=== PATIENT | male | born 1980 | race Two or more races ===

== ENCOUNTER 2018-05-10 18:37 | Inpatient (IN) | payer BC, OTHER ==
[~2018-05-10] VITALS: Ht 180.3 cm; Wt 90.7 kg
--- NOTE | 2018-05-10 19:02 | NUR ---
PT TO ER BED 3. BIBWIFE C/O BACK PAIN WITH BLOOD IN URINE X 2 DAYS. PT STATES HIT HIS SIDE AT WORK X 1 WEEK AGO. PT PLACED IN GOWN AND ON DIRECTOR OF CULTURE. VSS/RESP EVEN UNLABORED/NAD NOTED/SKIN WARM AND DRY/AFEBRILE/DENIES N-V-D/AOX4. AWAITNG MD SHARMA.
--- NOTE | 2018-05-10 19:05 | NUR ---
URINE SPECIMEN OBTAINED AND SENT TO THE LAB.
--- NOTE | 2018-05-10 19:10 | NUR ---
18G IV TO R AC X 1 ATTEMPT USING ASEPTIC TECH, BLOOD HANDED OVER TO THE LAB AT BEDSIDE. IV FLUSHES EASILY WITH NS, NO S/S INFILTRATION NOTED AT THIS TIME.
[2018-05-10] MEDS ORDERED: KETOROLAC TROMETHAMINE 15 MG/ML VIAL ONE (19:11)
[2018-05-10] MEDS ORDERED: ACETAMINOPHEN ES 500 MG TABLET ONE (19:12)
[2018-05-10] MEDS ORDERED: MORPHINE SULFATE INJ 4 MG/ML DISP.SYRIN ONE (19:12)
[2018-05-10] MEDS ORDERED: ONDANSETRON HCL/PF 4 MG/2 ML VIAL ONE (19:12)
[2018-05-10 19:20] LABS: BASOPHILS % (AUTO) 0.5 % (0.0-2.0); EOSINOPHILS % (AUTO) 0.9 % (0.0-6.0); HEMATOCRIT 49 % (39-51); HEMOGLOBIN 16.8 g/dL (13.5-17.5); LYMPHOCYTES # (AUTO) 1.4 /CMM (0.8-4.8); LYMPHOCYTES % (AUTO) 15.4 % (20.0-44.0); MEAN CORPUSCULAR HEMOGLOBIN 31 PG (26.0-33.0); MEAN CORPUSCULAR HGB CONC 34 g/dl (31.0-36.0); MEAN CORPUSCULAR VOLUME 90 fL (80-96); MONOCYTES # (AUTO) 0.4 /CMM (0.1-1.30); MONOCYTES % (AUTO) 4.1 % (2.0-12.0); NEUTROPHILS # (AUTO) 6.9 /CMM (1.8-8.9); NEUTROPHILS % (AUTO) 79.1 % (43.0-81.0); PLATELET COUNT (AUTO) 218 /CMM (150-450); RDW COEFFICIENT OF VARIATION 12.6 (11.5-15.0); RED BLOOD CELL COUNT(AUTO) 5.48 MIL/uL (4.5-6.0); WHITE BLOOD COUNT (AUTO) 8.8 K/uL (4.3-11.0)
--- NOTE | 2018-05-10 19:20 | NUR ---
PT TO CT VIA WC.
[2018-05-10 19:21] LABS: APPEARANCE,URINE Turbid (CLEAR); BILIRUBIN,URINE LARGE (NEGATIVE); BLOOD, URINE Large Ery/uL (NEGATIVE); COLOR,URINE Brown (YELLOW); KETONES,URINE 15 (NEGATIVE); LEUKOCYTE ESTERASE ,URINE Large (NEGATIVE); NITRITE, URINE Negative (NEGATIVE); PH,URINE 5.5 (5.0-8.0); PROTEIN,URINE >=300 mg/dl (NEGATIVE); UGLUCOSE Negative (NEGATIVE)
[2018-05-10] MEDS ORDERED: ONDANSETRON HCL/PF 4 MG/2 ML VIAL IVP ONE (19:30)
[2018-05-10] MEDS ORDERED: KETOROLAC TROMETHAMINE INJ 30 MG/ML VIAL IV ONE (19:30)
[2018-05-10] MEDS ORDERED: MORPHINE SULFATE INJ 2 MG/ML DISP.SYRIN IV ONE (19:30)
[2018-05-10] MEDS ORDERED: IV NS 0.9% 1,000 ML BAG IV ONE (19:30)
[2018-05-10] MEDS ORDERED: ACETAMINOPHEN ES 500 MG TABLET PO ONE (19:30)
--- NOTE | 2018-05-10 19:30 | NUR ---
PT BACK FROM CT.
[2018-05-10 19:37] LABS: ALBUMIN 4.4 g/dL (3.4-5.0); BILIRUBIN,DIRECT 0.3 mg/dL (0.0-0.2); BILIRUBIN,TOTAL 2.1 mg/dL (0.2-1.0); CALCIUM, SERUM 9.4 mg/dL (8.5-10.1); CREATININE 1.1 mg/dL (0.6-1.3); POTASSIUM 3.9 mmol/L (3.5-5.1); TOTAL PROTEIN, SERUM 8.1 g/dL (6.4-8.2)
[2018-05-10 20:02] LABS: RBC,URINE TOO NUMEROUS TO COUN /HPF (0-2); WBC,URINE 21-50 /HPF (0-3)
[2018-05-10 20:03] LABS: BACTERIA,URINE Many /HPF (None Seen); SQUAMOUS EPITHELIAL CELL,UR Few /HPF (None Seen)
[2018-05-10] MEDS ORDERED: PIPERACILLIN /TAZOBACTAM 3.375 G VIAL IV ONE (20:26)
[2018-05-10] MEDS ORDERED: PIPERACILLIN /TAZOBACTAM 3.375 G in IV D5W 50 ML IV ONE (20:30)
[2018-05-10] MEDS ORDERED: HYDROCODONE/APAP 5/325MG 1 EACH TABLET PO PRN (21:00)
[2018-05-10] MEDS ORDERED: MORPHINE SULFATE INJ 2 MG/ML DISP.SYRIN IV PRN (21:00)
[2018-05-10] MEDS ORDERED: ACETAMINOPHEN 325 MG TABLET PO PRN (21:00)
[2018-05-10] MEDS ORDERED: Z GUARD REMEDY 2 OZ OINT TP PRN (21:00)
[2018-05-10] MEDS ORDERED: MAGNESIUM HYDROXIDE 30 ML UDC PO PRN (21:00)
[2018-05-10] MEDS ORDERED: MAG HYDROX/AL HYDROX/SIMETH 30 ML UDC PO PRN (21:00)
[2018-05-10] MEDS ORDERED: ONDANSETRON HCL/PF 4 MG/2 ML VIAL IVP PRN (21:00)
[2018-05-10] MEDS ORDERED: ZOLPIDEM TARTRATE 5 MG TABLET PO PRN (21:00)
--- NOTE | 2018-05-10 21:12 | NUR ---
CALLED NURSE SUP FOR MED/SURG
--- NOTE | 2018-05-10 21:41 | NUR ---
REPORT GIVEN TO BRUCE MACK FOR ADAN.
[2018-05-10 21:55] VITALS: BP 117/69
--- NOTE | 2018-05-10 21:55 | NUR ---
admission notes: received report from sofia dutta. pt was brought to the unit via wheelchair. pt is a/o x4, on ra, respiration even and unlabored, stated he's pain is a lot better now. right ac iv access patent and flushing well, on hl. no s/s of infiltration or redness noted on iv access site. pt came in for right lower back pain since yesterday, with dysuria and hematuria. oriented pt to unit policy and hourly rounding. Discussed plan of care to the pt. pt ambulatory, continent, informed pt to use the urinal as we need to strain his urine, pt understand. vs taken and recorded. skin checked performed and no skin issues noted. inventory of belonging completed by limnologist. safety precautions for fall initiated, call light in reach, will continue monitoring pt.
--- NOTE | 2018-05-10 21:59 | NUR ---
PT TRANSPORTED TO [facility] VIA STRETCHER WITH EMT. GEORGETTES.
[2018-05-10 22:00] VITALS: BP 117/69
[2018-05-10] MEDS: IV NS 0.9% 1,000 ML IV SCH (22:17)
[2018-05-10] MEDS ORDERED: Potassium Chloride 40 MEQ in IV NS 0.9% 1,000 ML IV SCH (22:30)
--- NOTE | 2018-05-10 22:30 | NUR ---
rn notes: MD placed an order for regular diet, and pt was asking for food he stated he was hungry. provided with snack, pt consumed 100%, then md now placed an order for NPO dated 05/11/18, informed pt he will be Nothing to eat or drink after midnight, pt agree and understand.
[2018-05-10] MEDS ORDERED: TAMSULOSIN 0.4 MG CAP.SR.24H PO SCH (23:00)
--- NOTE | 2018-05-10 23:32 | NUR ---
RN NOTES: DR BALL CAME TO SEE THE PT, PERFORMED H&P, DISCUSSED PLAN OF CARE TO THE PT, UROLOGIST DR REYNOLDS WILL BE SEEING THE PT TOMORROW AM, POSSIBLE ULTRASOUND TO REMOVE THE STONES, AND CLARIFIED WITH WARDROBE MISTRESS MD REGARDING ORDERS FOR NS WITH 40MEQ KCL ORDERED BY DR REYNOLDS, PT'S K LEVEL IS 3.9, PER WARDROBE MISTRESS MD, ONLY GIVE NS@ 100ML/HR FOR THE PT
[2018-05-11] MEDS: KETOROLAC TROMETHAMINE INJ 30 MG/ML VIAL IM SCH ×2 (00:05→06:15)
[2018-05-11] MEDS ORDERED: PIPERACILLIN /TAZOBACTAM 3.375 G VIAL IV ONE ×2 (01:02→05:53)
[2018-05-11] MEDS: PIPERACILLIN /TAZOBACTAM 3.375 G in IV D5W 50 ML IV SCH ×2 (01:08→06:16)
--- NOTE | 2018-05-11 06:10 | NUR ---
RN NOTES: PT STATED HE DOESNT HAVE PAIN AT THIS TIME, PT HAS SCHEDULE TORADOL INJ RTC Q6HR PER MD TO GIVE THE MEDICINE, THE MEDICATION IS MAINLY FOR INFLAMMATION AND PAIN
[2018-05-11 06:43] LABS: BASOPHILS % (AUTO) 0.3 % (0.0-2.0); EOSINOPHILS % (AUTO) 1.1 % (0.0-6.0); HEMATOCRIT 40 % (39-51); HEMOGLOBIN 13.8 g/dL (13.5-17.5); LYMPHOCYTES # (AUTO) 1.5 /CMM (0.8-4.8); LYMPHOCYTES % (AUTO) 20.4 % (20.0-44.0); MEAN CORPUSCULAR HEMOGLOBIN 32 PG (26.0-33.0); MEAN CORPUSCULAR HGB CONC 35 g/dl (31.0-36.0); MEAN CORPUSCULAR VOLUME 92 fL (80-96); MONOCYTES # (AUTO) 0.5 /CMM (0.1-1.30); MONOCYTES % (AUTO) 6.4 % (2.0-12.0); NEUTROPHILS # (AUTO) 5.3 /CMM (1.8-8.9); NEUTROPHILS % (AUTO) 71.8 % (43.0-81.0); PLATELET COUNT (AUTO) 176 /CMM (150-450); RDW COEFFICIENT OF VARIATION 13.2 (11.5-15.0); RED BLOOD CELL COUNT(AUTO) 4.31 MIL/uL (4.5-6.0); WHITE BLOOD COUNT (AUTO) 7.4 K/uL (4.3-11.0)
[2018-05-11 06:44] LABS: CALCIUM, SERUM 8.2 mg/dL (8.5-10.1); CREATININE 1.3 mg/dL (0.6-1.3); PHOSPHORUS 4.4 mg/dL (2.5-4.9)
--- NOTE | 2018-05-11 07:00 | NUR ---
RN NOTES: PT'S URINE COLOR A LOT BETTER COMPARED LAST NIGHT, NOW ITS PINKISH, NO CLOTS NOTED, NO STONE NOTED, INFORMED PT TO CONTINUE USING URINAL IN THAT WAY WE CAN STRAIN THE URINE
--- NOTE | 2018-05-11 07:02 | NUR ---
RN CLOSING NOTES: PT IN BED, REMAINS CONNECTED TO IVF NS AT 100ML/HR, IV ACCESS REMAINS PATENT AND FLUSHING WELL, NO S/S OF INFILTRATION OR REDNESS NOTED ON SITE. PER PT HE STATED HE'S PAIN IS WELL CONTROLLED BY TORADOL. PT REMAINS NPO, TO BE SEEN BY UROLOGIST TODAY, POSSIBLE ESWL, REMAINS WITH HEMATURIA, STILL STRAINING URINE. VS REMAINS STABLE, NEEDS ATTENDED. SAFETY PRECAUTIONS FOR FALL REMAINS ENGAGED, CALL LIGHT IN REACH, WILL ENDORSE TO DAY RN FOR ADAN.
[2018-05-11] MEDS: IV NS 0.9% 1,000 ML IV SCH (07:15)
[2018-05-11 08:00] VITALS: BP 112/65
--- NOTE | 2018-05-11 08:00 | NUR ---
RN NOTES RECEIVED PATIENT IN THE ROOM A/O X4, PATIENT HAS NO ACUTE RESPIRATORY DISTRESS, V/S STABLE, PATIENT ALSO REFUSED PAIN AT THIS TIME. PATIENT SEEN BY UROLOGIST. PER UROLOGIST PATIENT CLEAR TO D/C HOME. CALL LIGHT WITHIN TO REACH, SAFETY PRECAUTION MAINTAINED ALL THE TIME.
[2018-05-11] MEDS ORDERED: IPRA21SP NS (08:20)
--- NOTE | 2018-05-11 11:26 | NUR ---
DISCHARGE NOTES PATIENT DISCHARGE AT THIS TIME GOING HOME. PATIENT STABLE, NO C/O PAIN, V/S STABLE. MED RECONCILIATION AND DISCHARGE ORDER REVIEWED AND EXPLAINED TO. PATIENT VERBALIZED UNDERSTANDING. PATIENT PRESCRIPTION PER UROLOGIST DIRECTOR POWER IN THE PHARMACY. ESCORTED PATIENT TO THE [facility] FOR SAFETY, PATIENT DIRECTOR POWER BY GIRLFRIEND PHONE #[phone].
== END 2018-05-11 11:37 | disposition home or self-care (01) | DRG 690 ==
LOC: ER 18:38 → MEDSG2 21:48
PROVIDERS: ADMIT Internal Medicine; ATTEND Internal Medicine
DX: N13.6 Pyonephrosis (principal); Z90.49 Acquired absence of other specified parts of digestive tract; Z87.442 Personal history of urinary calculi; N39.0 Urinary tract infection, site not specified; Z98.890 Other specified postprocedural states
CPT/HCPCS: 36415; 80048-TC; 80076-TC; 81000-TC; 83690-TC; 83735-TC; 84100-TC; 85025-TC; 87081-TC; 87086-TC; A4606; J1885; J2270; J2405; J2543; J3480; J7030; J7060; Z7610

== ENCOUNTER 2018-05-11 15:12 | Emergency (ER) | payer BC ==
[~2018-05-11] VITALS: Ht 180.3 cm; Wt 90.7 kg
[~2018-05-11 15:12] MED LIST: IPRA21SP NS
--- NOTE | 2018-05-11 15:15 | NUR ---
CLAUDINE , FROM HOME WITH CC OF R FLANK PAIN SINCE 1430. DIAGNOSED W/ KIDNEY INFECTION AND KIDNEY STONE , PAIN OF 10/10 SQUIRMING , GUARDING AND SCREAMING , VSS ,AFEBRILE , WILL CONTINUE TO MONITOR
[2018-05-11] MEDS ORDERED: IV NS 0.9% 1,000 ML BAG IV ONE (15:30)
[2018-05-11] MEDS ORDERED: HYDROMORPHONE INJ 2 MG/ML DISP.SYRIN IV ONE ×2 (15:30→16:30)
[2018-05-11] MEDS ORDERED: KETOROLAC TROMETHAMINE INJ 30 MG/ML VIAL IV ONE (15:30)
[2018-05-11] MEDS ORDERED: ONDANSETRON HCL/PF 4 MG/2 ML VIAL IVP ONE (15:30)
[2018-05-11] MEDS ORDERED: ONDANSETRON HCL/PF 4 MG/2 ML VIAL ONE (15:33)
[2018-05-11] MEDS ORDERED: KETOROLAC TROMETHAMINE 15 MG/ML VIAL ONE (15:33)
[2018-05-11] MEDS ORDERED: HYDROMORPHONE INJ 2 MG/ML DISP.SYRIN ONE ×2 (15:34→16:08)
[2018-05-11 15:59] LABS: BASOPHILS % (AUTO) 0.4 % (0.0-2.0); EOSINOPHILS % (AUTO) 0.9 % (0.0-6.0); HEMATOCRIT 44 % (39-51); HEMOGLOBIN 14.8 g/dL (13.5-17.5); LYMPHOCYTES % (AUTO) 10.8 % (20.0-44.0); MEAN CORPUSCULAR HEMOGLOBIN 31 PG (26.0-33.0); MEAN CORPUSCULAR HGB CONC 34 g/dl (31.0-36.0); MEAN CORPUSCULAR VOLUME 89 fL (80-96); MONOCYTES # (AUTO) 0.7 /CMM (0.1-1.30); MONOCYTES % (AUTO) 7.5 % (2.0-12.0); NEUTROPHILS # (AUTO) 7.1 /CMM (1.8-8.9); NEUTROPHILS % (AUTO) 80.4 % (43.0-81.0); PLATELET COUNT (AUTO) 195 /CMM (150-450); RDW COEFFICIENT OF VARIATION 12.3 (11.5-15.0); RED BLOOD CELL COUNT(AUTO) 4.87 MIL/uL (4.5-6.0); WHITE BLOOD COUNT (AUTO) 8.9 K/uL (4.3-11.0)
--- NOTE | 2018-05-11 16:05 | NUR ---
PATIENT STILL COMPLAINS OF PAIN 9/10 AT RIGHT FLANK AREA , SHARP IN CHARACTERITICS , DESPITE OF GIVING DILAUDID 1 MG , TORADOL 15MG , NOTIFIED DR GR . AWARE
[2018-05-11 16:11] LABS: CALCIUM, SERUM 8.8 mg/dL (8.5-10.1); CREATININE 1.6 mg/dL (0.6-1.3); POTASSIUM 3.6 mmol/L (3.5-5.1)
[2018-05-11 16:17] LABS: ALBUMIN 3.9 g/dL (3.4-5.0); BILIRUBIN,DIRECT 0.2 mg/dL (0.0-0.2); BILIRUBIN,TOTAL 1.5 mg/dL (0.2-1.0); TOTAL PROTEIN, SERUM 7.4 g/dL (6.4-8.2)
--- NOTE | 2018-05-11 16:31 | NUR ---
URINE SPECIMEN COLLECTED , LABALED AND SENT TO LAB .
[2018-05-11 16:42] LABS: APPEARANCE,URINE Cloudy (CLEAR); BILIRUBIN,URINE Negative (NEGATIVE); BLOOD, URINE Large Ery/uL (NEGATIVE); COLOR,URINE Amber (YELLOW); KETONES,URINE Negative (NEGATIVE); LEUKOCYTE ESTERASE ,URINE Trace (NEGATIVE); NITRITE, URINE Negative (NEGATIVE); PH,URINE 5.5 (5.0-8.0); PROTEIN,URINE 30 mg/dl (NEGATIVE); UGLUCOSE Negative (NEGATIVE); UROBILINOGEN,URINE 0.2 EU/dL (0.2)
[2018-05-11 17:27] LABS: RBC,URINE TOO NUMEROUS TO COUN /HPF (0-2)
[2018-05-11 17:28] LABS: BACTERIA,URINE Few /HPF (None Seen); SQUAMOUS EPITHELIAL CELL,UR Few /HPF (None Seen)
[2018-05-11 18:30] VITALS: BP 110/55
--- NOTE | 2018-05-11 18:30 | NUR ---
Patient discharged to home in stable condition. Written and verbal after care instructions given. Patient verbalizes understanding of instruction.IV removed. Catheter intact and site benign. Pressure and 4x4 applied to site. No bleeding noted. prescrpition explained and verbalzied understanding
== END 2018-05-11 18:32 | disposition home or self-care (01) ==
LOC: ER 15:15
DX: N23 Unspecified renal colic (principal); N20.0 Calculus of kidney; Z91.011 Allergy to milk products
CPT/HCPCS: 36415; 80048; 80076; 81001; 83690; 85025; 96374; 96375; 99284; A4606; J1170 ×2; J1885; J2405; J7030; Z7610; 81000-TC